=== PATIENT | male | born 1990 | race Asian ===

== ENCOUNTER 2017-11-15 23:57 | Emergency (ER) | payer OTHER ==
[~2017-11-15] VITALS: Ht 180.3 cm; Wt 72.6 kg
[2017-11-16 00:17] VITALS: BP_SYST 146
[2017-11-16 02:29] VITALS: BP_SYST 146
== END 2017-11-16 02:29 | disposition home or self-care (01) ==
LOC: SED 23:57
DX: S86.012A Strain of left Achilles tendon, initial encounter (principal); R03.0 Elevated blood-pressure reading, without diagnosis of hypertension; X58.XXXA Exposure to other specified factors, initial encounter; Y93.67 Activity, basketball; Y92.310 Basketball court as the place of occurrence of the external cause; Y99.8 Other external cause status
CPT/HCPCS: 73650-TC; 99284